=== PATIENT | male | born 1960 | race Caucasian/White ===

== ENCOUNTER → 2021-01-22 | Outpatient (REF) | payer BC ==
[2021-01-22 18:13] LABS: MALB URINE SIEMENS 8.4 MG/L; MAU/CREAT RATIO 6.3 MCG/MG (0.0-30.0)
== END ==
LOC: M LAB REF 16:49
PROVIDERS: ATTEND Internal Medicine Endocrinology, Diabetes & Metabolism
DX: E11.65 Type 2 diabetes mellitus with hyperglycemia (principal)

== ENCOUNTER → 2023-06-01 | Day surgery (SDC) | payer OTHER ==
[~2023-06-01] VITALS: Ht 167.6 cm; Wt 88.5 kg
[~2023-06-01] MED LIST: ACETAMINOPHEN 1000MG 100ML IV BAG As Ordered ONE; HYDROMORPHONE HCL 0.5 MG/ 0.5 ML SYRINGE IV PRN; IBUP200C25 PO; LIDOCAINE 2% 100MG/5ML SDV (FOR ANES.) As Ordered ONE; LIDOCAINE 2% JELLY 6ML SYRINGE As Ordered ONE; LR 1,000 ML IV SCH; MIDAZOLAM INJ 2MG/2ML VIAL As Ordered ONE; NAPR-849 PO; ONDANSETRON 4MG 2ML VIAL As Ordered ONE; ONDANSETRON 4MG 2ML VIAL IV PRN; fentaNYL 100 MCG/2 ML INJECTION As Ordered ONE; fentaNYL 100 MCG/2 ML INJECTION IV PRN; oxyCODONE 5MG TAB PO PRN; propofoL 200 MG/20 ML VIAL As Ordered ONE
[2023-06-01] MEDS: LR 1,000 ML IV SCH (12:18)
[2023-06-01] MEDS: CIPRODEX OTIC SUSP 7.5ML As Ordered ONE (16:11)
[2023-06-01 17:00] VITALS: BP 131/84; TEMP 97.2; O2SAT 95
== END | disposition home or self-care (01) ==
LOC: M SDC 11:39
PROVIDERS: ATTEND Otolaryngology
DX: H65.21 Chronic serous otitis media, right ear (principal); H69.81 Other specified disorders of Eustachian tube, right ear; H73.892 Other specified disorders of tympanic membrane, left ear; Z90.49 Acquired absence of other specified parts of digestive tract; Z87.891 Personal history of nicotine dependence
CPT/HCPCS: 69436; J0131; J1100; J2250; J2405; J3010

== ENCOUNTER 2025-02-27 07:08 | Day surgery (SDC) | payer OTHER ==
[~2025-02-27] VITALS: Ht 167.6 cm; Wt 92.2 kg
[~2025-02-27 07:08] MED LIST changes: -ACETAMINOPHEN 1000MG 100ML IV BAG As Ordered ONE; -HYDROMORPHONE HCL 0.5 MG/ 0.5 ML SYRINGE IV PRN; -LIDOCAINE 2% 100MG/5ML SDV (FOR ANES.) As Ordered ONE; -LIDOCAINE 2% JELLY 6ML SYRINGE As Ordered ONE; -LR 1,000 ML IV SCH; -MIDAZOLAM INJ 2MG/2ML VIAL As Ordered ONE; -ONDANSETRON 4MG 2ML VIAL As Ordered ONE; -ONDANSETRON 4MG 2ML VIAL IV PRN; -fentaNYL 100 MCG/2 ML INJECTION As Ordered ONE; -fentaNYL 100 MCG/2 ML INJECTION IV PRN; -oxyCODONE 5MG TAB PO PRN; -propofoL 200 MG/20 ML VIAL As Ordered ONE
[2025-02-27] MEDS ORDERED: LIDOCAINE 2% 100 MG/5 ML SDV (FOR ANES.) As Ordered ONE (09:45)
[2025-02-27] MEDS ORDERED: MIDAZOLAM INJ 2 MG/2 ML VIAL As Ordered ONE (09:46)
[2025-02-27] MEDS ORDERED: ONDANSETRON 4MG/2ML VIAL As Ordered ONE (10:58)
[2025-02-27] MEDS ORDERED: dexAMETHasone 4 MG/ML 1 ML VIAL As Ordered ONE (10:59)
[2025-02-27] MEDS ORDERED: ACETAMINOPHEN 1000MG/100ML IV BAG As Ordered ONE (11:23)
[2025-02-27] MEDS ORDERED: dexmedeTOMIDine (4 MCG/ML) 200 MCG/50 ML BTL As Ordered ONE (11:25)
[2025-02-27] MEDS: dexAMETHasone 4 MG/ML 1 ML VIAL IV ONE (11:27)
[2025-02-27] MEDS: CIPRODEX OTIC SUSP 7.5 ML As Ordered ONE (11:43)
[2025-02-27] MEDS: EPINEPHrine 1 MG/ML INJ 30 ML MD-VIAL As Ordered ONE (12:00)
[2025-02-27] MEDS: METHYLENE BLUE 0.5% (5 MG/ML) 10 ML AMP As Ordered ONE (12:00)
[2025-02-27] MEDS ORDERED: ONDANSETRON 4MG/2ML VIAL IV PRN (12:15)
[2025-02-27] MEDS ORDERED: MORPHINE 4 MG/ML 1 ML VIAL IV PRN (12:15)
[2025-02-27 12:47] VITALS: BP 147/85; TEMP 97.7; O2SAT 96
== END 2025-02-27 13:07 | disposition home or self-care (01) ==
LOC: M SDC 07:08
PROVIDERS: ATTEND Otolaryngology
DX: H69.83 Other specified disorders of Eustachian tube, bilateral (principal); H73.893 Other specified disorders of tympanic membrane, bilateral; Z90.89 Acquired absence of other organs
CPT/HCPCS: 69436; 69706; 93005; C1726; J0131; J0165; J1100; J2250; J2405; J3010; J3490